=== PATIENT | male | born 1955 | race Caucasian/White ===

== ENCOUNTER 2017-04-20 05:57 | Day surgery (SDC) | payer BC ==
[2017-04-20] MEDS ORDERED: PERCOCET1 TA4 PO (08:35)
[2017-04-20 09:31] VITALS: BP 130/75
== END 2017-04-20 09:20 | disposition home or self-care (01) | DRG 489 ==
LOC: ORM 05:57
PROVIDERS: ATTEND Orthopaedic Surgery
PROC: 0SBD4ZZ Excision of Left Knee Joint, Percutaneous Endoscopic Approach (ICD-10-PCS; principal; 2017-04-20)
DX: S83.272A Complex tear of lateral meniscus, current injury, left knee, initial encounter (principal); M65.9 Synovitis and tenosynovitis, unspecified; M94.262 Chondromalacia, left knee; S83.242A Other tear of medial meniscus, current injury, left knee, initial encounter; X58.XXXA Exposure to other specified factors, initial encounter; Y93.02 Activity, running